=== PATIENT | male | born 1995 | race American Indian/Alaskan Native ===

== ENCOUNTER 2017-01-16 05:59 | Emergency (ER) | payer MEDICAID ==
[~2017-01-16] VITALS: Ht 177.8 cm; Wt 105.0 kg
[2017-01-16] MEDS ORDERED: SODIUM CHLORIDE 0.9% 1,000ML IVBOLUS ONE (06:30)
[2017-01-16] MEDS ORDERED: SODIUM CHLORIDE FLUSH 10ML SYR IVF ONE (06:30)
[2017-01-16] MEDS ORDERED: PLEASE ENTER ALLERGIES MC SCH ×2 (06:30)
[2017-01-16] MEDS ORDERED: ONDANSETRON 2MG/ML, 2ML IVPush ONE (06:30)
[2017-01-16] MEDS ORDERED: MORPHINE SULFATE 4 MG/ML, 1ML ONE ×2 (06:31→07:05)
[2017-01-16] MEDS ORDERED: ONDANSETRON 2MG/ML, 2ML ONE (06:32)
[2017-01-16] MEDS: MORPHINE SULFATE 4 MG/ML, 1ML IVPush PRN ×2 (06:36→07:09)
[2017-01-16 06:51] LABS: BLOOD UREA NITROGEN 7 mg/dL (7-18)
[2017-01-16] MEDS ORDERED: KETOROLAC 30 MG/1 ML ONE (07:23)
[2017-01-16 09:31] VITALS: BP 130/83
== END 2017-01-16 09:33 | disposition home or self-care (01) ==
LOC: ED 06:32
DX: N13.2 Hydronephrosis with renal and ureteral calculous obstruction (principal); N20.1 Calculus of ureter; Z90.49 Acquired absence of other specified parts of digestive tract
CPT/HCPCS: 36415; 74176; 80048; 81001; 82040; 85025; 96374; 96375; 96376; 99285; J2405; J7030